=== PATIENT | male | born 1970 | race African-American/Black ===

== ENCOUNTER 2017-07-06 18:50 | Emergency (ER) | payer BC ==
[~2017-07-06] VITALS: Ht 182.9 cm; Wt 100.0 kg
[2017-07-06] MEDS ORDERED: SODIUM CHLORIDE 0.9% 1,000 ML IV ONE (19:30)
[2017-07-06 19:47] LABS: BASOPHILS % 0.8 % (0.0-2.0); EOSINOPHILS % 2.3 % (0.0-5.0); HEMATOCRIT. 40.1 % (42.0-52.0); HEMOGLOBIN. 13.9 g/dL (14.0-18.0); LYMPHOCYTES % 12.5 % (20.0-50.0); MEAN CORPUSCULAR VOLUME 89.7 fL (80.0-94.0); MEAN PLATELET VOLUME 7.2 fl (7.4-10.4); MONOCYTES % 8.8 % (2.0-8.0); NEUTROPHILS % 75.6 % (40.0-76.0); PLATELET 254 x1000/uL (130-400); RED BLOOD CELL COUNT 4.48 mill/uL (4.7-6.1); RED CELL DISTRIBUTION WIDTH 13.9 % (11.6-14.6)
[2017-07-06 19:59] LABS: CHLORIDE 105 mEq/L (98-107)
[2017-07-06 21:30] VITALS: BP 179/96
== END 2017-07-06 22:10 | disposition home or self-care (01) ==
LOC: ER 19:04
DX: R55 Syncope and collapse (principal); R11.0 Nausea
CPT/HCPCS: 36415; 80048; 85025; 93005; 99285; J7030